=== PATIENT | male | born 1980 | race Caucasian/White ===

== ENCOUNTER → 2017-06-13 | Outpatient (CLI) | payer BC | LOC: BMCIMAGING 12:01 | PROVIDERS: ATTEND Internal Medicine | DX: M79.675 Pain in left toe(s) (principal) ==

== ENCOUNTER → 2018-03-01 | Outpatient (CLI) | payer OTHER | LOC: CIMAGING 17:06 | PROVIDERS: ATTEND Internal Medicine | DX: R79.89 Other specified abnormal findings of blood chemistry (principal); M62.81 Muscle weakness (generalized) | CPT/HCPCS: 76770-PO ==

== ENCOUNTER → 2018-03-30 | Outpatient (CLI) | payer OTHER | LOC: BMCIMAGING 16:10 | PROVIDERS: ATTEND Internal Medicine | DX: M54.6 Pain in thoracic spine (principal); S22.060D Wedge compression fracture of T7-T8 vertebra, subsequent encounter for fracture with routine healing; S22.070D Wedge compression fracture of T9-T10 vertebra, subsequent encounter for fracture with routine healing ==